=== PATIENT | female | born 1950 | race Caucasian/White ===

== ENCOUNTER 2019-07-01 16:44 | Inpatient (IN) ==
[2019-07-01 18:51] LABS: ALLEN TEST YES; BE 0.5 mmoll (-3.0-3.0); BLOOD TYPE ARTERIAL; HCO3-(ACT) 25.3 mmoll (20.0-26.0); METHB 0.9 % (0.0-1.5); O2(CT) 17.2 mL/dL (15.0-23.0); O2HB 94.7 % (95.0-99.0); PCO2(98.6) 37 mmHg (35-45); PO2(98.6) 70 mmHg (60-100); SAMPLE BLOOD; SAO2 96.7 % (95.0-100.0); THB 12.9 g/dL (11.5-17.4); pH(98.6) 7.43 (7.35-7.45)
[2019-07-01 18:56] LABS: MODALITY ROOM AIR
[2019-07-01 19:01] LABS: BASO# 0.04 X1000 (0.0-0.2); BASO% 0.4 % (0.0-0.8); EOS# 0.24 X1000 (0.0-0.7); EOS% 2.7 % (0.0-10.0); HEMATOCRIT 40.6 % (37.0-47.0); HEMOGLOBIN 12.8 g/dL (12.0-16.0); IMM GRAN# 0.03 X1000 (0.0-0.04); IMM GRAN% 0.3 % (0.0-0.5); LYMPH# 1.68 X1000 (1.2-3.4); LYMPH% 18.8 % (20.5-51.1); MCH 27.1 PG (27-31); MCHC 31.5 g/dL (33-37); MCV 85.8 FL (81-99); MPV 11.8 FL (7.4-10.4); NEUT# 6.14 X1000 (1.4-6.5); NEUT% 68.8 % (42.2-75.2); PLT 220 X1000 (130-400); RBC 4.73 XMIL (4.2-5.4); RDW 14.8 % (11.5-14.5); WBC 8.93 X1000 (4.8-10.8)
[2019-07-01 19:14] LABS: INR 0.97
[2019-07-01 19:19] LABS: C REACTIVE PROT QUANT 1.78 mg/L (0.00-5.00)
[2019-07-01 19:39] LABS: AGAP 10; BUN 14 mg/dL (8-22); CALCIUM 9.6 mg/dL (8.8-10.2); CHLORIDE 102 mmol/L (98-107); COSMO 281; CREATININE 0.9 mg/dL (0.5-0.9); ESTIMATED GFR > 60; GLUCOSE 124 mg/dL (70-104); POTASSIUM 4.5 mmol/L (3.5-5.1); SODIUM 140 mmol/L (136-145); TCO2 28 mmol/L (25-35)
[2019-07-01] MEDS ORDERED: KLOR-CON PO SCH (21:00)
[2019-07-01] MEDS ORDERED: UROCIT-K PO SCH (21:00)
--- NOTE | 2019-07-01 21:24 | Diag Imaging Result Doc PS360 ---
EXAM: CT ANGIOGRM PULMONARY ARTERIES 07/01/2019 HISTORY: cp and sob cxr nodules in right lung TECHNIQUE: This exam was performed using automated exposure control, adjustment of mA or kV according to patient size, and/or use of iterative reconstruction technique. COMMENT: The current study is compared with 08/28/2018. 3-D MIPS were performed. There are no filling defects in the pulmonary arteries. The aorta is normal in caliber. There is no evidence of dissection. There are no abnormal fluid collections. There is dense opacity in the inferior lingula which was also present on the previous study. There is bronchiectasis and pleural thickening anteriorly in the inferior right middle lobe. These findings were also present on the previous study. There is also some irregular opacity laterally with pleural thickening in the middle lobe which is worse than on the previous study. The tree-in-bud opacities present in the right lower lobe and middle lobe on the previous study have diminished but there are larger nodules present in the anterior right upper lobe than present at the time the previous study. There is a similar appearance in the anterior right lower lobe on image 62 which was not the case at the time the previous study. The mediastinum is stable in appearance. The regional skeleton is intact. There is atrophy of the right kidney which was also present previously. There is also right nephrolithiasis. IMPRESSION: Pleural and parenchymal changes particularly in the right middle lobe and upper lobe which have worsened since 08/28/2018. This may be due to granulomatous disease. No evidence of pulmonary emboli. Electronically signed by Harmeet Bright 07/01/2019 9:21 PM
[2019-07-01] MEDS: ASPIRIN PO SCH (21:48)
[2019-07-01] MEDS: ZOCOR PO SCH (21:48)
--- NOTE | 2019-07-01 21:57 | EKG Report ---
Test Performed on : 07/01/2019 6:30:32 PM Test Reason : CHEST PAIN Blood Pressure : / mmHG Vent. Rate : 088 BPM Atrial Rate : 088 BPM P-R Int : 154 ms QRS Dur : 076 ms QT Int : 346 ms P-R-T Axes : 061 011 061 degrees QTc Int : 418 ms Sinus rhythm. with frequent premature ventricular complexes. Possible Left atrial enlargement Nonspecific ST and T wave abnormality Abnormal ECG When compared with ECG of 02-SEP-2018 14:24, premature ventricular complexes. are now present Questionable change in QRS axis Confirmed by Ismael Gutierrez MD ([id number]) on 07/02/2019 8:41:20 AM
[2019-07-01] MEDS: UROCIT-K PO SCH (21:58)
--- NOTE | 2019-07-01 22:16 | HISTORY AND PHYSICAL ---
CHIEF COMPLAINT: Irregular heart rate, chest pain on the right side going to the back off and on since Saturday. HISTORY OF PRESENT ILLNESS: She is a 69-year-old white female who was seen in my office 2 days ago. She has atypical chest pain. She had a cardiac workup in our [facility] in February 2019. It was reported by Dr. Garcia. No reversible ischemia. Normal LV systolic function. She has been taking Nexium. When she came back, the heart rate was erratic. She is taking anastrozole. She was tachycardic, and chest x-ray in my office showed chronic left lingular scarring due to bronchiectasis, but now the last comparing with previous exam, there are a few more nodules noted in the right middle lobe and lower lobe. Basically she is being admitted to the hospital for rule out PE and further workup. She was admitted on observation. PAST MEDICAL HISTORY: Atypical chest pain. Cardiac workup was negative February 2019. Right breast cancer, lobular, grade 2, ERPR positive, status post radiation followed by lumpectomy. Diverticulosis, hypertension, acid reflux disease, hyperlipidemia, atrophic right kidney with kidney stones, B12 deficiency. PAST SURGICAL HISTORY: Renal lithotripsy and right lumpectomy. Lymph nodes were negative. MEDICINES: Aspirin, anastrozole 1 mg daily, Flonase as needed, Hyzaar 100/25 daily, Prilosec 40 daily, potassium citrate 10 mEq daily, simvastatin 20 mg daily, B12 at 1000 mcg daily. ALLERGIES: Codeine, penicillin G, sulfa antibiotics. SOCIAL HISTORY: Lives in [place]. No smoking. No alcohol. Works for the [employer]. , 2 children. FAMILY HISTORY: Father at 62 from emphysema. Mom had a polycystic disease and from an [place]. HEALTH MAINTENANCE: Flu vaccine declined. Pneumococcal vaccine declined. Last mammography January 2019. EGD/colonoscopy by Dr. Brown, July 2018. REVIEW OF SYSTEMS: HEENT: No headache, no vision problem. No earache. No sore throat. Neck: No goiter. No lymphadenopathy. No bruit. Cardiopulmonary: Chest pain and shortness of breath, palpitations. GI: No nausea, vomiting, or abdominal pain. Bleeding per rectum. : No history of hesitancy, frequency, or dysuria. No swelling of legs. No joint pain. Neurologic: No focal symptoms or weakness. PHYSICAL EXAMINATION: VITAL SIGNS: Temperature is 97.7, pulse 86, blood pressure 150/97, height 5 feet 1 inch, weight 161 pounds. HEENT: Atraumatic, normocephalic. Pupils equal, react to light. TMs are normal. Nose and throat within normal limits. NECK: Supple. No lymphadenopathy. CHEST: Bilateral air entry. HEART: Tachycardic. ABDOMEN: Belly is soft, obese, nontender. Good bowel sounds. EXTREMITIES: No peripheral edema or cyanosis. NEUROLOGIC: No obvious neurological deficits. INVESTIGATIONS: CBC is normal. SMA 7 is normal. PT/INR and D-dimer are normal. ABG: PH of 7.43, pCO2 of 37, pO2 of 70 on room air. SMA 7: Cardiac enzymes, proBNP were normal. CRP was negative. ASSESSMENT AND PLAN: 1. A 69-year-old white female admitted to the hospital with shortness of breath, atypical chest pain, on anastrazole. Negative D-dimer. Chest x-ray was abnormal with nodules in the right lung, and plan is for CT pulmonary angiogram and chest. Based on that, further recommendations will be followed, and will reconcile home medications and also consult with Dr. Stout. 2. Right breast cancer, 0.7 cm stage I, ERPR positive, status post right lumpectomy followed by lymph node biopsies which were negative status post radiation. 3. Atrophic right kidney with a stone, stable. 4. Sigmoid diverticulitis, stable, B12 deficiency, on replacement therapy. 5. Hyperlipidemia on simvastatin. 6. Hypertension on Hyzaar. 7. Acid reflux disease on proton pump inhibitor. 8. History of shingles at left 2019, stable. 9. Will discuss with the radiologist, and further plans will be made. 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 We will check an EKG and will follow up. cc: Zen Sagastume MD
[2019-07-02] MEDS ORDERED: PRILOSEC PO SCH (07:00)
[2019-07-02] MEDS ORDERED: HYZAAR 50/12.5 MG PO SCH (09:00)
[2019-07-02] MEDS ORDERED: CALTRATE 600 + D PO SCH (09:00)
[2019-07-02] MEDS ORDERED: ZITHROMAX 500 MG/NS 500 MG/250 ML IVPB IV SCH (09:00)
[2019-07-02] MEDS ORDERED: ARIMIDEX PO SCH (09:00)
[2019-07-02] MEDS ORDERED: TUBERSOL ID ONE (09:07)
--- NOTE | 2019-07-02 14:31 | PULMONOLOGY CONSULTATION ---
DATE: 07/02/2019 REQUESTING CLINICIAN: Dr. Sagastume. REASON FOR CONSULTATION: Nodules in the right lung. HISTORY OF PRESENT ILLNESS: Ms. Dorantes is a 69-year-old, white female, never smoker, who underwent a CT scan of the thorax in 08/2018 for a cough. The patient had evidence of bronchiectasis in the middle lobe, and some pneumonia in the lingula. She reports that she recovered from that acute illness. She has occasional cough, which is predominantly clear. She does not have daily sputum production. She denies fevers or chills. She has not had weight loss or hemoptysis. She denies recent travel. She does not have birds and has not been recently exposed to bird excrement. She has no known exposure to tuberculosis. She reports other family members have been diagnosed with bronchiectasis. She was evaluated by Dr. Sagastume for atypical chest pain and tachycardia, and was admitted to the hospital for possible pulmonary embolus. CT scan of the thorax was performed on 07/01/2019, which revealed no evidence of pulmonary emboli, but the pulmonary and parenchymal infiltrates in the middle lobe and upper lobe have slightly worsened when compared to 08/28/2018. She also has some nodules in the right upper lobe, which are larger than on prior exam. PAST MEDICAL HISTORY/PROBLEM LIST: 1. Status post lumpectomy and radiation therapy for cancer involving the right breast. The patient was diagnosed on 09/10/2018 and had negative sentinel lymph nodes. She is currently on an aromatase inhibitor. 2. Hypertension. 3. Nephrolithiasis with history of right renal atrophy. 4. Dyslipidemia. 5. Atypical chest pain with negative cardiac workup in 02/2019. SOCIAL HISTORY: She is a never smoker. No alcohol use. She currently is active. She indicates she walks 3 to 4 times per week, 1 mile at a time. She does have some limitations associated with osteoarthritis. FAMILY HISTORY: Positive for emphysema in a father who smoked, polycystic kidney disease, bronchiectasis. REVIEW OF SYSTEMS: As noted in the HPI. PHYSICAL EXAMINATION: General: A well-developed, well-nourished, healthy-appearing, white female, resting comfortably and in no distress. Vital Signs: Blood pressure 133/70, heart rate 72, respiratory rate 18, oxygen saturation 99% on room air. HEENT: Pupils are equal and reactive. Oropharynx appears clear. Neck: Supple. Chest: Good air entry bilaterally. There are minimal crackles anteriorly bilaterally. Abdomen: Soft and nontender. Extremities: Without edema. LABORATORY DATA: Arterial blood gas reveals pH 7.43, pCO2 of 37, PO2 of 70. Sodium 140, potassium 4.5, chloride 102, bicarbonate 28, BUN 14, creatinine 0.9. White blood count 8.93, hemoglobin 12.8, platelet count 220,000. IMPRESSION: A 69-year-old with: 1. Bronchiectasis with mild progression over the last year. 2. Pulmonary nodules, which appear more inflammatory than metastatic. 3. History of breast cancer. DISCUSSION: A 69-year-old with problems outlined above. The patient appears to have chronic bronchiectasis. The location pattern would be typical for an atypical mycobacterium infectious process, such as Mycobacterium avium complex disease. I do believe it would be reasonable to pursue an outpatient bronchoscopy for washing of these areas to see if a specific dominant pathogen could be identified. Currently, she is doing well and can be discharged from a pulmonary standpoint to be followed in the office. She currently has minimal sputum production, so she is unlikely to be able to produce an adequate sample. RECOMMENDATIONS: 1. Follow up outpatient with possible bronchoscopy and lavage of the right middle lobe and lingula. 2. Agree with QuantiFERON Gold TB test. I will also send a serum immunoelectrophoresis to check for multiple myeloma and check immunoglobulin levels. 3. Continue daily exercise. 4. Anticipate initiation of bronchial hygiene (i.e., albuterol nebulizer b.i.d.) at her initial office visit. cc: MD Zen Spence MD
[2019-07-02 20:05] VITALS: BP 120/61
[2019-07-02] MEDS: ASPIRIN PO SCH (20:08)
[2019-07-02] MEDS: UROCIT-K PO SCH (20:08)
[2019-07-02] MEDS: ZOCOR PO SCH (20:08)
--- NOTE | 2019-07-05 09:06 | DISCHARGE SUMMARY ---
ADMISSION DATE: 07/01/2019 DISCHARGE DATE: 07/02/2019 DISCHARGING DIAGNOSIS: 1. Chest pain atypical-cardiac stress test was negative February 2019. 2. History of right breast cancer, lobular, grade 2, ERPR positive, status post radiation followed by lumpectomy. 3. Diverticulosis, hypertension, acid reflux disease, stable. 4. Hyperlipidemia atrophic kidney on the right side with kidney stones, B12 deficiency. 5. Abnormal chest x-ray with nodular lesions in the right lower lobe and middle lobe on the lateral side and chronic left lingular scarring in 2017. CONSULTS: Dr. Stout. BRIEF HISTORY: Please see the H and P that was done on 06/21/2019. In brief, she is a 69-year- old white female came in my office with chest pain going to the back on the right side associated with irregular heart and anxiety and tachycardia. LABS: wbc 6.0 hematocrit 40, platelets 220,000, INR 0.97 and ABG pH is 7.43, pCO2 37, PO2 70, bicarb 25 on room air. SMA 7 was normal. Glucose 124. Serum protein electrophoresis negative. HOSPITAL COURSE: Prior to the hospital patient was seen twice in my office. On the 2nd visit chest x-ray was abnormal. It showed interval development of nodules with hazy infiltrates. She did not have any symptoms of infection. Basically admitted to the hospital for chest pain workup. She is also taking anastrozole for hormonal treatment for breast cancer. Admitted in [facility] in observation. Follow-up EKG normal sinus with PVCs. Cardiac enzymes were negative. ProBNP, D-dimer were normal. CT scan was obtained. Negative PE and I did review the x- rays with the radiologist. She has a worsening of this granulomatosis changes on the right lower lobe and middle lobe mostly pleural-based inflammation. At this time the radiologist convinced it does not look like metastatic. It could be infectious process. Once again, patient was minimal symptoms. I discussed with patient that needs further diagnosis which includes either bronchoscopy or CT-guided biopsy. Hence I did request Dr. Stout to be consulted. We did perform TB gold test, is pending. PPD test was placed on the left forearm, results are pending. Urine histoplasma antigen test was done and patient was given empirical with Zithromax for possible MEGHAN. She was discharged home in a stable condition with the following instructions. DISCHARGE INSTRUCTIONS: Aspirin 81 mg daily, simvastatin 20 daily, potassium citrate 10 mEq daily, Prilosec 40 daily, Hyzaar 100/25 daily, anastrozole 1 mg daily, calcium with vitamin D 1 tablet daily, Zithromax 500 daily for 7 days. Follow up in my office for the pending testing urine for histoplasma antigen, QuantiFERON test and PPD skin test and outpatient bronchoscopy. Continue to monitor as an outpatient, by chest x-ray or CT of the chest. [facility]
== END 2019-07-02 20:05 | disposition home or self-care (01) | DRG 313 ==
LOC: DIRADM → OBSVTOIN 16:44 → 2N 17:18
PROVIDERS: ADMIT Internal Medicine; ATTEND Internal Medicine